=== PATIENT | female | born 1985 | race Caucasian/White ===

== ENCOUNTER 2023-02-06 09:11 | Emergency (ER) | payer OTHER ==
[2023-02-06 10:02] LABS: Bilirubin Neg (Negative); Blood, Urine 10 (Negative); Glucose, Urine (Dipstick) Normal (Negative); Ketone, Urine Negative (Negative); Leukocyte 25 (Negative); Nitrite Negative (Negative); Protein, Urine (Dipstick) 15 mg/dl (Neg-Trace); Specific Gravity, Urine 1.015 (1.005-1.030); Urobilinogen Normal mg/dL (Less than 2)
[2023-02-06 10:03] LABS: Clarity Hazy (Clear)
[2023-02-06 10:05] LABS: Pregnancy Test - Urine (BHCG) Negative (Negative); Pregu Control Background? CLEAR/WHITE (CLR/WHITE); Pregu Control Bar Appear? YES (CONTROL BAR); Specific Gravity 1.015 (1.002-1.036)
[2023-02-06 10:11] LABS: RBC/HPF 0-3 HPF (0-3)
[2023-02-06 10:12] LABS: Bacteria/HPF 1+ HPF (None Seen); CAUTI Indications for Culture Pelvic or flank pain; Mucous/LPF 1+ LPF (<2+); WBC/HPF 0-3 HPF (0-3)
[2023-02-06 10:13] LABS: Urine Culture Reflex No No
== END 2023-02-06 10:25 | disposition home or self-care (01) ==
LOC: CSHERS 09:11
DX: B02.9 Zoster without complications (principal); F17.210 Nicotine dependence, cigarettes, uncomplicated
CPT/HCPCS: 81001; 81025; 99284